=== PATIENT | female | born 2000 | race American Indian/Alaskan Native ===

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

== ENCOUNTER 2021-06-17 13:08 | Outpatient (CLI) | payer OTHER ==
--- NOTE | 2021-06-17 23:53 | XRay Report ---
CHEST 2 VIEWS INDICATION / CLINICAL INFORMATION: ENCOUNTER FOR DISABILITY DETERMINATION Z02.71. COMPARISON: 03/23/13. FINDINGS: SUPPORT DEVICES: None. HEART / MEDIASTINUM: The heart size and pulmonary vasculature are normal. LUNGS / PLEURA: No significant pulmonary or pleural abnormality. No pneumothorax. ADDITIONAL FINDINGS: No significant additional findings. IMPRESSION: No acute abnormality or significant change. Signer Name: Darius Banerjee MD Signed: 06/17/2021 4:09 PM Workstation Name: [id number]
== END 2021-06-17 13:09 | disposition home or self-care (01) ==
LOC: XRAY 13:08
PROVIDERS: ATTEND Internal Medicine
DX: Z02.71 Encounter for disability determination (principal)
CPT/HCPCS: 71046